=== PATIENT | female | born 1960 | race Caucasian/White ===

== ENCOUNTER 2021-08-14 09:37 | Emergency (ER) | payer OTHER, SELFPAY ==
--- NOTE | ~2021-08-14 | XR_ITS ---
EXAMINATION: XR ANKLE, LEFT CLINICAL INFORMATION: Twisting injury COMPARISON: None TECHNIQUE: AP, lateral, and mortise views of the left ankle. FINDINGS: Marked lateral ankle soft tissue swelling. Mild medial ankle soft tissue swelling. No visible acute fracture or dislocation. Ankle mortise is maintained. Plantar calcaneal spur. Anterior process of the calcaneus, fifth metatarsal base appear intact. . XR/XR ankle LT min 3V IMPRESSION: Ankle soft tissue swelling. No radiographically evident acute fracture or dislocation.
[2021-08-14 09:47] VITALS: BP 134/85; PULSE 103; RESP 22; TEMP 36.6; O2SAT 90; BMI 38.6
[2021-08-14 11:50] VITALS: PULSE 100; RESP 20; O2SAT 91
--- NOTE | 2021-08-14 11:55 | ED_ITS ---
HPI - Extremity Injury (Lower) General Chief Complaint: Extremity Injury, Lower Stated Complaint: lt ankle injury Time Seen by Provider: 08/14/21 11:36 Source: patient and family Mode of arrival: ambulatory Limitations: no limitations History of Present Illness HPI Narrative: 61-year-old female with a past medical history of COPD and postural orthostatic tachycardia syndrome presenting to the ED with complaints of left ankle pain/swelling after she fell asleep on her couch last night and when she got up she must been laying on her left ankle because it was completely asleep and when she tried to get up she did not feel her ankle therefore she fell and landed directly on her ankle and her ankle twisted inward and since then she has been having severe pain/swelling/especially with palpation and movement. She denies head injury or loss of consciousness. She denies being on any blood thinners. She denies any other injuries complaints or concerns at this time. MD complaint: ankle injury and fall Onset (ago): day(s) (Since last night) Injury: Left: ankle Type of Injury: inversion Place: home Severity: severe Severity scale (1-10): >10 Relieving factors: nothing Exacerbating factors: weight bearing, movement and palpation Context: fall Associated symptoms: swelling Other symptoms: none Treatments prior to arrival: cold therapy Related Data Previous Rx's Medication Instructions Recorded acetaminophen 500 mg tablet 1,000 mg PO QID PRN #14 tab 08/14/21 (Tylenol Extra Strength) ibuprofen 800 mg tablet 800 mg PO Q8H PRN #14 tab 08/14/21 oxycodone 5 mg tablet 5 mg PO Q6H PRN #14 tab 08/14/21 Allergies Allergy/AdvReac Type Severity Reaction Status Date / Time No Known Allergies Allergy Unverified 06/10/20 14:53 Review of Systems Review of Systems: Constitutional : No Weight loss, No Fever, No Chills, No Night Sweats, No Fatigue, No Malaise ENT/Mouth : No Hearing loss, No Ear Pain, No Nasal Congestion, No Sinus Pain, No Hoarseness, No sore throat, No Rhinorrhea, No Swallowing Difficulty Eyes: No Eye Pain, No Swelling, No Redness, No Foreign Body, No Discharge, No Vision Changes Cardiovascular : No Chest Pain, No SOB, No Dyspnea on Exertion, No Orthopnea, No Edema, No Palpitations Respiratory : No Cough, No Sputum, No Wheezing, No Smoke Exposure, No Dyspnea Gastrointestinal : No Nausea, No Vomiting, No Diarrhea, No Constipation, No abdominal Pain, No Hematochezia, No Melena Genitourinary : no irregular bleeding, No Dysuria, No Urinary Frequency, No Hematuria, No Urinary Incontinence, No Urgency, No Flank Pain, No Urinary Flow Changes, No Hesitancy Musculoskeletal : + joint pain/swelling, No Myalgias Skin : No Skin Lesions, No rash Neuro : No Weakness, No Numbness, No Paresthesias, No Loss of Consciousness, No Dizziness, No Headache Psych : No Anxiety/Panic, No Depression, No SI/HI/AH/VH, No Social Issues, Heme/Lymph: No Bruising, No Bleeding,No Lymphadenopathy Endocrine : No Polyuria, No Polydipsia, No Temperature Intolerance Yes all other systems are reviewed and are negative [facility] Past Medical History Attestation statement: The following information was validated with the patient. Medical History Postural orthostatic tachycardia syndrome Social History Social History Advance Directives: No Physical Exam Vital Signs: Vital Signs: Last Vital Signs Temp 98 F 08/14/21 09:47 Pulse 100 08/14/21 11:50 Resp 20 08/14/21 11:50 BP 134/85 08/14/21 09:47 Pulse Ox 91 L 08/14/21 11:50 Body Mass Index 38.6 vital signs have been reviewed as normal and appeared to be correct. Blood pressure normal Heart rate normal. Respiration rate normal. Temperature normal. Oxygen saturation normal. Appearance: Alert. Oriented X3. No acute distress. Head: Normal external exam. Normocephalic. Atraumatic. Eyes: PERRLA. EOMI. Conjunctiva and sclera normal. Eyelids normal. ENT: Pharynx normal. Uvula midline. Moist mucous membranes. Neck: Normal inspection. Neck supple. FROM. CVS: Normal heart rate and rhythm. Respiratory: No respiratory distress. Painless inspiration. Skin: Skin warm and dry. Normal skin color. Normal skin turgor. No rashes/lesions/lacerations noted. Extremities: Patient with moderate tenderness to palpation and soft tissue swelling to left lateral malleolus. Otherwise no obvious tendon or ligament injury. No signs of infection. Achilles tendon is intact.Otherwise all other Extremities exhibit normal range of motion and nontender. Neuro: Oriented X 3. No motor deficit. No sensory deficit. Reflexes normal. Normal steady gait. No focal neuro deficits noted. Vascular: + radial pulses/+ 2 distal pedal pulses/+2 dorsalis pedis b/l. Normal cap refill. No cyanosis noted to upper extremity nails and lower extremity toes nails. Course Course Course Narrative: 61-year-old female who has a past medical history of COPD presenting to the ED with complaints of left ankle pain/swelling after she fell off of her couch last night no head injury loss of conscious not on any blood thinners. X-rays obtained and negative for any fractures. I explained to the patient that her oxygen was in the low 90s and she reports that she is not have any cough URI symptoms or any shortness of breath that she does have a history of COPD and was a daily smoker years ago therefore due to patient not having complaints most likely this is her baseline. We will place an Yao wrap and provided crutches and treat symptomatically instructions to follow-up with orthopedic in symptoms persist for longer than 2-3 weeks and to return if any new or worsening symptoms to follow up with primary care provider as well. Patient understands agrees with this plan. MDM - Extremity Injury (Lower) Medical Records Attestation: I reviewed the patient's medical records. Imaging Data left ankle xray: Attestation: I personally reviewed and interpreted this imaging study as follows: Radiologist's impression: FINDINGS: Marked lateral ankle soft tissue swelling. Mild medial ankle soft tissue swelling. No visible acute fracture or dislocation. Ankle mortise is maintained. Plantar calcaneal spur. Anterior process of the calcaneus, fifth metatarsal base appear intact. .? XR/XR ankle LT min 3V IMPRESSION: Ankle soft tissue swelling. No radiographically evident acute fracture or dislocation. Procedures Orthopedic Splinting/Casting Injury #1: Side: left Lower Extremity Injury Location: ankle Lower Extremity Immobilizer: Yao wrap Other Orthopedic Equipment: crutches Discharge Plan Discharge Clinical Impression: Ankle sprain and strain, Fall Patient Disposition: Home, Self-Care Instructions: Ankle Sprain (ED), Crutch Instructions (ED), How to Use an Elastic Bandage (ED), Fall Prevention (ED) Prescriptions: New ibuprofen 800 mg tablet 800 mg PO Q8H PRN (Reason: pain) Qty: 14 RF: 0 acetaminophen [Tylenol Extra Strength] 500 mg tablet 1,000 mg PO QID PRN (Reason: fever or pain) Qty: 14 RF: 0 oxycodone 5 mg tablet 5 mg PO Q6H PRN (Reason: pain) Qty: 14 RF: 0 Referrals: David Piña MD [Physician] - 2 weeks (Make an appointment in 3 weeks if symptoms persist for longer than 2-3 weeks) Otto Hernandez MD [Primary Care Provider] - 2 days Print Language: Bulgarian
[2021-08-14] MEDS: oxyCODONE HCl Immed Release 5 MG TABLET PO (11:57)
[2021-08-14] MEDS: Ibuprofen 800 MG TABLET PO (11:57)
== END 2021-08-14 12:18 | disposition home or self-care (01) ==
PROVIDERS: Emergency Provider Emergency Medicine Emergency Medical Services; PCP Internal Medicine
DX: S93.402A Sprain of unspecified ligament of left ankle, initial encounter (principal); M25.572 Pain in left ankle and joints of left foot; X50.1XXA Overexertion from prolonged static or awkward postures, initial encounter; Y93.9 Activity, unspecified; Y92.009 Unspecified place in unspecified non-institutional (private) residence as the place of occurrence of the external cause; Y99.9 Unspecified external cause status; Z79.899 Other long term (current) drug therapy
CPT/HCPCS: 29515; 73610; 99283; 99284

== ENCOUNTER → 2021-08-25 09:58 | Outpatient (BNVA) | payer OTHER, SELFPAY | PROVIDERS: PCP Internal Medicine; Visit Provider Physician Assistant ==

== ENCOUNTER → 2021-09-13 11:30 | Outpatient (BNVA) | payer OTHER, SELFPAY | PROVIDERS: PCP Internal Medicine; Visit Provider Physician Assistant ==

== ENCOUNTER 2022-04-26 14:56 | Outpatient (REF) | payer OTHER, SELFPAY ==
--- NOTE | ~2022-04-26 | MM_ITS ---
EXAMINATION: MM SCREENING DIGITAL BREAST TOMOSYNTHESIS, BILATERAL CLINICAL INFORMATION: Screening. Asymptomatic. The lifetime risk of breast cancer based on the Tyrer-Cuzick Model is 6%. COMPARISON: Mammography: 07/25/2014, 05/29/2012 TECHNIQUE: Digital breast tomosynthesis is performed in both the craniocaudal and mediolateral oblique views along with computer-aided detection (CAD). Synthesized 2D images are generated from the tomosynthesis. FINDINGS: There are scattered areas of fibroglandular density (ACR BI-RADS breast composition Category b). Parenchymal pattern is similar to prior exam. There is no interval mass or architectural abnormality or abnormal calcifications. No developing density or architectural abnormality. The axilla and skin contours are unremarkable. MM/MM tomosynthesis screening BI IMPRESSION: No mammographic evidence of malignancy. ASSESSMENT: BI-RADS 1: Negative RECOMMENDATION: Routine annual mammography screening. This patient's information was entered into a reminder system with a target due date for their next mammogram.
== END 2022-04-26 14:57 | disposition home or self-care (01) ==
LOC: HO.MAMMO 14:56
PROVIDERS: PCP Internal Medicine; Visit Provider Internal Medicine
DX: Z12.31 Encounter for screening mammogram for malignant neoplasm of breast (principal)
CPT/HCPCS: 77063; 77067

== ENCOUNTER 2022-06-09 15:15 | Outpatient (REF) | payer OTHER, SELFPAY ==
--- NOTE | ~2022-06-09 | CT_ITS ---
EXAMINATION: CT CHEST SCREENING CLINICAL INFORMATION: Current smoker. 43 pack-year history. COMPARISON: None. TECHNIQUE: Multidetector volumetric CT imaging of the chest is performed without contrast using low dose technique. Additional 2D coronal and sagittal reformatted images and axial 3D maximum intensity projection (MIP) images are generated on the CT workstation. This CT examination was performed using dose optimization techniques as appropriate, variously including the following: *Automated exposure control *Adjustment of mA and/or kV according to patient size (this includes techniques or standardized protocols for targeted exams where dose is matched to indication/reason for exam; i.e. extremities or head) *Use of iterative reconstruction technique DLP: 343 mGy-cm FINDINGS: LUNGS: There are small calcified pulmonary nodules in the central right upper lobe measuring 3 mm axial image 13 and 5 mm axial image 2:15 series 5. There is a 2 mm calcified right lower lobe nodule axial image 214 series 5. There is a 2 mm calcified right upper lobe nodule axial image 218 series 5. There is a 2 mm calcified right middle lobe nodule axial image 299 series 5. There is a 2 mm calcified right lower lobe nodule axial image 3 and 306 series 5. There is scarring or subsegmental atelectasis at the lung bases greatest in the lingula and left lower lobe. No evidence of emphysema interstitial lung disease or bronchiectasis. No endobronchial or endotracheal lesion. MEDIASTINUM: The mediastinum is normal. CORONARY ARTERY CALCIFICATION: Mild coronary artery and aortic valve calcification. PLEURA: There is no pleural effusion. No pleural mass or thickening. AXILLA: No lymphadenopathy. UPPER ABDOMEN: There is prominence of the left lobe and caudate lobe of the liver. There is a recannulized paraumbilical vein and upper abdominal wall hernia containing fat and varices. OSSEOUS STRUCTURES: Degenerative changes of the spine. CT/CT lung screening IMPRESSION: Small calcified pulmonary nodules probably representing old granulomatous disease. Mild coronary artery and aortic valve calcification. Suggestion of portal hypertension. ASSESSMENT: Lung-RADS category 2: Benign RECOMMENDATION: Annual low-dose chest CT follow-up recommended.
== END 2022-06-09 15:16 | disposition home or self-care (01) ==
LOC: HO.CT 15:15
PROVIDERS: Visit Provider Physician Assistant Medical
DX: Z12.2 Encounter for screening for malignant neoplasm of respiratory organs (principal); Z87.891 Personal history of nicotine dependence
CPT/HCPCS: 71271; G0296

== ENCOUNTER 2022-06-23 16:58 | Emergency (ER) | payer OTHER, SELFPAY ==
--- NOTE | ~2022-06-23 | XR_ITS ---
EXAMINATION: XR HIP, RIGHT , AP pelvis CLINICAL INFORMATION: Pain COMPARISON: None available at the time of this dictation. TECHNIQUE: Frontal and lateral views of the hip acquired. , AP pelvis FINDINGS: There is 2 cm round radiolucency projecting over the right iliac bone, although could be bowel gas, cannot rule out osteolytic bone lesion. There is no evidence of acute fracture or dislocation. There are mild degenerative arthritic changes of the hip evident by sclerotic changes of the acetabular roof and narrowing of the joint space. Mild degenerative changes of the symphysis pubis. Mild degenerative changes of the SI joints. Adjacent pubic rami are intact. Surrounding soft tissues are unremarkable. XR/XR hip RT w PEL1V IMPRESSION: 2 cm radiolucency projecting over the right iliac bone, could be bowel gas versus osteolytic bone lesion. Would recommend correlation with follow-up pelvic right and left oblique views. .
--- NOTE | ~2022-06-23 | CT_ITS ---
EXAMINATION: CT ABDOMEN AND PELVIS WITHOUT CONTRAST CLINICAL INFORMATION: Possible pelvic osteolytic lesion. COMPARISON: Radiographs of the pelvis and right hip from 06/23/2022. Chest CT from 06/09/2022. TECHNIQUE: Multidetector volumetric imaging was performed from the superior aspect of the liver through the pubic symphysis. Sagittal and coronal reformatted images were obtained on the technologist's workstation. This CT examination was performed using dose optimization techniques as appropriate, variously including the following: *Automated exposure control *Adjustment of mA and/or kV according to patient size (this includes techniques or standardized protocols for targeted exams where dose is matched to indication/reason for exam; i.e. extremities or head) *Use of iterative reconstruction technique DLP: 901 mGy-cm FINDINGS: LUNG BASES: Mild atelectasis in visualized lung bases. No pulmonary consolidation or pleural effusion. LIVER: Cirrhotic liver morphology with nodular surface contour. Liver parenchyma is diffusely hypodense, consistent with presence of steatosis. Again noted is a recanalized paraumbilical vein. No focal liver lesions are identified on this noncontrast examination. GALLBLADDER AND BILIARY TREE: Gallbladder is without radiopaque stones, wall thickening or pericholecystic fluid. No dilated bile ducts. PANCREAS: Normal. No edema, pancreatic ductal dilatation or mass. SPLEEN: Normal. ADRENAL GLANDS: Normal. KIDNEYS AND URETERS: The kidneys have normal size and cortical thickness. No perinephric edema or fluid collection. No urolithiasis or hydroureteronephrosis. BLADDER: Normal. No calculi or wall thickening. BOWEL AND PERITONEUM: Stomach is unremarkable. No dilated loops of bowel. The appendix is normal. No overt bowel wall thickening or mesenteric fat stranding. Diverticula of the colon without evidence of diverticulitis. No wall thickening at the site of distal sigmoid anastomosis. No free fluid or pneumoperitoneum. ABDOMINAL WALL: Unremarkable. VASCULATURE: Atherosclerotic calcification of the abdominal aorta and iliac arteries without aneurysm. LYMPH NODES: No pathologic sized lymph nodes in the abdomen or pelvis. No inguinal lymphadenopathy. PELVIC VISCERA: Uterus and adnexa are unremarkable. No pelvic free fluid. SKELETAL: Chronic L5 spondylolysis, degenerative disc disease and mild grade 1 anterolisthesis at L5-S1. The degenerated, bulging disc is encroaching upon the bilateral neural foramina at L5-S1. No lytic lesion in the pelvis. CT/CT abdomen pelvis wo IV con IMPRESSION: * Cirrhotic liver, hepatic steatosis and recanalized paraumbilical vein. * No acute imaging abnormalities in the abdomen or pelvis. * Diverticula of the colon without diverticulitis. * No evidence of lytic bone lesion in the pelvis.
[2022-06-23 17:04] VITALS: BP 144/90; PULSE 100; RESP 18; TEMP 37.2; O2SAT 97; BMI 39.9
--- NOTE | 2022-06-23 18:18 | ED_ITS ---
HPI - General Adult General Chief complaint: Extremity Problem Stated complaint: hip pain Time Seen by Provider: 06/23/22 18:14 History of Present Illness HPI narrative: Patient complains of right hip right gluteal and right low back pain that sometimes radiates to the posterior thigh for several weeks getting worse She is able to ambulate and move her legs, she denies any muscle weakness, denies any numbness or loss of sensation, has no other joint pains Pain is worse with standing for long time or certain movements, no recent injury Related Data Previous Rx's Medication Instructions Recorded [email or web address],knee,reg,xlrg #12 ea 04/17/22 Allergies Allergy/AdvReac Type Severity Reaction Status Date / Time No Known Allergies Allergy Verified 06/23/22 16:15 Review of Systems Review of Systems: No fever no chills no dizziness no headache no neck pain no chest pain no shortness of breath no abdominal pain no nausea or vomiting no changes to bowel or bladder no dysuria no incontinence no frequency no skin rash no other joint pains no numbness or weakness Yes all other systems are reviewed and are negative [facility] Past Medical History Medical History (Updated 06/24/22 @ 00:01 by [facility] Steven) Diverticulosis History of COVID-19 (~2020) History of diverticulitis Personal history of nicotine dependence Postural orthostatic tachycardia syndrome Tubular adenoma of colon (~2012) Surgical History History of colon resection History of colonoscopy History of foot surgery History of melanoma excision History of tubal ligation Family History Family History Son Colon cancer, Onset Age: 39 Other Adopted Social History Social History Housing: Apartment Alcohol intake: current Patient Tobacco Use Status: Former Tobacco user Quit Date: 03/25/2013 Tobacco use type: Cigarette Years Smoked: (onset 18, 1ppd x 34yrs, 34pyh, quit 03/25/2013) e-Cigarette/Vaping Use: Never Used Advance Directives: No Advance Directives Information Provided: No Current occupational status: retired Current occupation: rt handed Cognitive needs: No Hearing needs: No Vision needs: Yes Physical Exam ED Vital Signs: Vital Signs - 24 hr 06/23/22 17:04 Temperature 98.9 F Pulse Rate 100 Respiratory Rate 18 Blood Pressure 144/90 H Pulse Oximetry 97 Oxygen Delivery Method Room Air BMI result Body Mass Index 39.9 General appearance no acute distress Head is normocephalic atraumatic Neck is supple, Respiratory no distress Chest clear to auscultation bilateral Abdomen soft nontender Extremities full range of motion x4 including the right leg, there was no focal tenderness over hip or groin The back there was tenderness to the right lateral gluteal and lower back area, skin was normal with no redness or evidence of absces, no soft tissue mass in the gluteal or low back area Extremities full range of motion x4 Skin no rash Neuro no focal motor sensory deficits, gait and balance were normal, interaction both expression comprehension were normal Course Course Course Narrative: X-ray of the right hip showed a 2 cm lucency over the right iliac bone that could have been gas versus any osteolytic bone lesion A CT was ordered for further evaluation of this finding At 19:00 the case is signed out to physician assistant jordan to follow CT results and dispo patient I called the patient the following day when I saw the CT report and she was already aware of the stye hepatics steatosis and cirrhotic liver morphology and will follow with her doctor to discuss any further evaluation for that Discharge Plan Discharge Clinical Impression: Back pain Patient Disposition: Home, Self-Care Instructions: Back Pain (ED) Additional Instructions: There were no emergent or critical findings on the CT scan Follow with primary doctor as scheduled July 11 Return to the ER any time for any change or worse condition, incontinence, severe uncontrolled worsening pain, fever, any worse condition or concerns Prescriptions: No Action (DME) [email or web address],knee,reg,xlrg Misc See Rx Instructions .Route Qty: 12 0RF Rx Instructions: As directed 20-30 mm HG Interventions: ED Discharge Assessment Last Done: 06/23/22 22:47 Discharge Date/Time: 06/23/22 22:50
[2022-06-23 19:36] VITALS: BP 118/70; PULSE 95; O2SAT 94
== END 2022-06-23 22:50 | disposition home or self-care (01) ==
PROVIDERS: Emergency Provider Emergency Medicine; PCP Internal Medicine
DX: M54.50 Low back pain, unspecified (principal); M25.551 Pain in right hip; F17.210 Nicotine dependence, cigarettes, uncomplicated; Z71.6 Tobacco abuse counseling
CPT/HCPCS: 73502; 74176; 99283; 99284

== ENCOUNTER 2022-07-06 12:55 | Outpatient (REF) | payer OTHER, SELFPAY ==
[2022-07-11 11:42] LABS: HPV mRNA E6/E7 rflx Not Detected (Not Detected)
== END 2022-07-06 12:56 | disposition home or self-care (01) ==
LOC: HO.LNP 12:55
PROVIDERS: Visit Provider Obstetrics & Gynecology
DX: Z01.419 Encounter for gynecological examination (general) (routine) without abnormal findings (principal); Z11.51 Encounter for screening for human papillomavirus (HPV)
CPT/HCPCS: 87624; 88142

== ENCOUNTER 2022-08-19 07:29 | Outpatient (REF) | payer OTHER, SELFPAY ==
[2022-08-19 07:40] LABS: MANUAL DIFF FLAG NO
[2022-08-19 08:26] LABS: Basophils Absolute Auto 0.1 X10*3/uL (0.0-0.2); Basophils Percent Auto 0.9 % (0-2); Eosinophils Absolute Auto 0.4 X10*3/uL (0.0-0.4); Eosinophils Percent Auto 4.8 % (0-4); Hematocrit 52.1 % (37.0-47.0); Hemoglobin 16.8 g/dl (12.0-16.0); Imm Gran Abs Auto 0.02 X10*3/uL (0.00-0.03); Imm Gran Pct Auto 0.3 % (0.0-0.4); Lymphocytes Absolute Auto 2.1 X10*3/uL (1.2-4.9); Lymphocytes Percent Auto 28.3 % (20-40); Mean Corpuscular HGB Conc 32.2 g/dl (31.0-35.0); Mean Corpuscular Hemoglobin 31.1 pg (27.0-33.0); Mean Corpuscular Volume 96.5 fL (80.0-98.0); Mean Platelet Volume 11.4 fL (9.4-12.3); Monocytes Absolute Auto 0.8 X10*3/uL (0.1-1.2); Monocytes Percent Auto 11.1 % (2-11); Neutrophils Absolute Auto 4.1 x10*3/uL (2.0-8.3); Neutrophils Percent Auto 54.6 % (45-73); Platelet Count 167 X10*3/uL (160-400); White Blood Count 7.5 X10*3/uL (4.8-10.8)
[2022-08-19 09:20] LABS: Alanine Aminotransferase 39 U/L (0-31); Albumin Level 3.7 g/dL (3.5-5.0); Alkaline Phosphatase 86 U/L (39-117); Anion Gap 14 (12-20); Aspartate Amino Transferase 41 U/L (5-31); Bilirubin Total 0.8 mg/dL (0.0-1.0); Blood Urea Nitrogen 11 mg/dL (9-16); Calcium 9.5 mg/dL (8.4-10.2); Carbon Dioxide 25 mmol/L (22-29); Chloride 103 mmol/L (96-108); Cholesterol 175 mg/dL; Estimated Glomerular Filt Rate > 60; Free T4 (Free Thyroxine) 0.91 ng/dL (0.71-1.85); Glucose Random 94 mg/dL (60-115); HDL Cholesterol 35 mg/dL; LDL Cholesterol Calculated 119 mg/dl; Sodium 138 mmol/L (135-145); Thyroid Stimulating Hormone 1.29 uIU/mL (0.32-4.0); Total Protein 7.8 g/dL (6.5-8.0); Triglycerides 108 mg/dL; Vitamin D 25-OH Total 15.5 ng/mL (>30)
[2022-08-19 09:38] LABS: Vitamin B12 563 pg/mL (200-900)
== END 2022-08-19 07:30 | disposition home or self-care (01) ==
LOC: HO.LAB 07:29
PROVIDERS: PCP Internal Medicine; Visit Provider Internal Medicine
DX: E78.00 Pure hypercholesterolemia, unspecified (principal); E66.9 Obesity, unspecified
CPT/HCPCS: 36415; 80053; 80061; 82306; 82607; 82746; 84439; 84443; 85025

== ENCOUNTER 2022-10-30 13:34 | Outpatient (RCR) | payer OTHER, SELFPAY ==
--- NOTE | 2022-10-30 14:57 | MHC.PT.EP ---
[facility] [place] [facility] [place] [facility] [place] [facility] [address] [phone] F: [phone] F: [phone] F: [phone] F: [phone] Physical Therapy Plan of Care Date of Evaluation: Date of Surgery: NA Diagnosis: Pain in R hip Assessment: Shelley is a 62 year old female who is referred to PT for pain in R hip . She reports of having pain in R buttock with radiates down to R LE. She has had this pain for about a year. She denies any trauma or falls. On PT examination she presented with TTP over R sacral border, R glute, R piriformis, 6/10 pain with standing and walking for more than 15 minutes and sitting for more than an hour, decreased trunk ROM, decreased muscle strength, altered posture and gait. She lives with her boyfriend who assist her with ADLS that requires bending, lifting and carrying. She works in [employer]- [employer]. She would benefit from skilled PT to address the aforementioned impairments and improve tolerance to functional activities. Frequency and Duration: The patient will be seen 2/week for 5 weeks Short Term Goals: 1. Pt will have 50% decrease in pain which will enable her to tolerate sitting without pain in 2 weeks. 2. Pt will be able to move her trunk through all planes of motion without pain which will enable her to dress her lower body in 3 weeks. Residential Goals: 1. Pt will present with increase in muscle strength by 1 grade which will enable her to tolerate walking and standing for about an hour in 4 weeks. 2. Pt will be independent with [facility] for symptom management and maintenance following d/c in 5 weeks. Treatment Plan: Modalities to reduce pain, spasms and effusion. Manual therapy to restore motion and function. Therapeutic exercise to improve strength and flexibility. Neuromuscular re-education for posture and balance. Therapeutic activities to return to functional activities of daily living. Electronically signed by: Davida Meneses PT DPT Please sign and return to therapist. Thank you for your referral.
--- NOTE | 2022-11-08 13:27 | MHC.PT.DC ---
[facility] [place] Office [place] [facility] [place] Office [address] [phone] F: [phone] F: [phone] F: [phone] F: [phone] Physical Therapy Discharge Report Diagnosis: Pain in R hip Date of Surgery: NA Date of Evaluation: 10/30/22 Date of Discharge: 11/08/22 Treatments to Date: 1 Cancellations to Date: 0 No Shows to Date: Discharge Status: Patient Elected to Stop Discharge Summary: Shelley called and d/c herself from PT due to insurance issues (high deductibles) Electronically signed by: Davida Meneses PT DPT Please sign and return to therapist. Thank you for your referral.
== END 2022-11-08 13:27 | disposition home or self-care (01) ==
LOC: HO.PT 13:34
PROVIDERS: PCP Internal Medicine; Visit Provider Nurse Practitioner Family
DX: M25.551 Pain in right hip (principal)
CPT/HCPCS: 97110; 97161

== ENCOUNTER 2024-03-20 07:43 | Outpatient (AMB) | payer OTHER, SELFPAY ==
[2024-03-20 07:50] VITALS: BP 104/68; PULSE 92; O2SAT 96; BMI 42.9
--- NOTE | 2024-03-20 07:50 | MHC.PC.OV ---
Vital Signs 03/20/24 07:50 Height 5 ft 4 in Weight 250 lb 0.1 oz BMI 42.9 BP 104/68 Blood Pressure Location Lt brachial Position Sitting Pulse 92 Pulse Source Pulse Oximeter Pulse Oximetry (%) 96 Oxygen Delivery Method Room Air Intake Visit Reasons: Preop eye surgery 04/16 and 04/30 Intake Note: Patient is here for a Pre-op for Cataract surgery scheduled with [facility] Scarlet Wong ; 04/16/24 and 04/30/24. Allergies No Known Allergies Allergy (Verified 03/20/24 08:01) Medication List - Last Reconciled 03/20/24 by Cynthia Phelps PA-C cholecalciferol (vitamin D3) 50 mcg PO DAILY [email or web address] As directed 20-30 mm HG Tobacco use date assessed: 03/20/24 Dental Screening Dental Screen Date: 03/20/24 Did you have a dental visit in the last 12 months?: Yes Did you have a dental problem in the last 6 months where you did not have access to dental care?: No Was dental information given to patient?: Patient has dentist HPI Preop eye surgery 04/16 and 04/30 HPI Details 63 year old obese female with history of COPD, GERD, and cirrhosis last seen August 2023 for physical exam coming in today for cataract surgery pre-op 04/16 and 04/30. Patient has been seeing PT for her hip pain. Patient is going for surgery for cataract surgery and is having bilateral eyes done because she is at risk for additional fluid buildup and increased pressures. Her breathing has been under good control since smoking cessation and has not had any shortness of breath outside of exercise which resolves with rest. Denies any chest pain at rest or during exercise. [facility] Medical History Diverticulosis Tubular adenoma of colon (~2012) Personal history of nicotine dependence History of diverticulitis History of COVID-19 (~2020) Postural orthostatic tachycardia syndrome Surgical History History of melanoma excision History of tubal ligation History of colonoscopy History of foot surgery History of colon resection Family History Son Colon cancer, Onset Age: 39 Other Adopted Social History Housing: Apartment Alcohol intake: former Patient Tobacco Use Status: Former Tobacco user Tobacco use type: Cigarette Years Smoked: (onset 18, 1ppd x 34yrs, 34pyh, quit 03/25/2013) e-Cigarette/Vaping Use: Never Used Current occupational status: employed Current occupation: Customer Service Admin, rt handed Cognitive needs: No Hearing needs: No Vision needs: Yes Female Reproductive History Menstrual Age of Menarche: 14 Questionnaire PHQ-9 Over the last 2 weeks, how often have you been bothered by any of the following problems? 1. Little interest or pleasure in doing things: not at all 2. Feeling down, depressed, or hopeless: not at all 3. Trouble falling or staying asleep, or sleeping too much: not at all 4. Feeling tired or having little energy: not at all 5. Poor appetite or overeating: not at all 6. Feeling bad about yourself - or that you are a failure or have let yourself or your family down: not at all 7. Trouble concentrating on things, such as reading the newspaper or watching television: not at all 8. Moving or speaking so slowly that other people could have noticed. Or the opposite - being so fidgety or restless that you have been moving around a lot more than usual: not at all 9. Thoughts that you would be better off or of hurting yourself in some way: not at all Total score: 0 Depression Screening Interpretation: Negative Depression Screening Done: Yes Source: Developed by Drs. Matt Lizarraga, Macy Shelton, Bang Jett and colleagues, with an educational bharati from [employer]. Thrive Questionnaire Date Thrive assessed: 03/20/24 I am a: Patient What is your living situation today?: I have a steady place to live Within the past 12 months, did the food you bought not last and you didn't have the money to get more?: Never true Within the past 12 months, did you worry whether your food would run out before you got money to buy more?: Never true Do you have trouble paying for medicines?: No Do you have trouble getting transportation to medical appointments?: No Do you have trouble paying your heating and electricity bill?: No Do you have trouble taking care of your child, family member or friend?: No Do you have trouble with day-to-day activities such as bathing, preparing meals, shopping, managing finances, etc.?: No Are you currently unemployed and looking for a job?: No Are you interested in more education?: No Please select the resources that you would like help with: None Currently or been in a relationship where the following occur: No concerns reported THRIVE Score: 0 AUDIT C Alcohol Use Questionnaire (AUDIT-C) 1. How often do you have a drink containing alcohol?: Monthly or less 2. How many drinks containing alcohol do you have on a typical day when you are drinking?: 1 or 2 3. How often do you have six or more drinks on one occasion?: Never Total Score: 1 Score Reviewed/Action Taken: No KERRY-7 AMB Questionnaire KERRY-7 Date KERRY - 7 assessed: 07/11/22 Source: Developed by Drs. Matt Lizarraga, Macy Shelton, Bang Jett and colleagues, with an educational bharati from [employer]. Review of Systems Const Denies anorexia, Denies fatigue, Denies fever(s), Denies headache(s), Denies night sweats and Denies stops breathing during sleep Eyes Reports no additional complaints and Denies loss of vision ENT Reports no additional complaints, Denies dysphagia, Denies dizziness and Denies headache(s) Card Denies chest pain, Denies chest pain at rest, Denies diaphoresis, Denies syncope, Denies edema, Denies leg edema, Denies palpitations and Denies dyspnea Resp Denies cough and Denies dyspnea GI Denies abdominal pain, Denies melena, Denies bloating, Denies change in bowel habits, Denies constipation, Denies dysphagia, Denies diarrhea and Denies vomiting Reports no additional complaints Musc Reports no additional complaints, Denies numbness and Denies tingling Skin/Breast Reports system reviewed and no additional complaints, except as documented Neuro Denies confusion, Denies dizziness, Denies syncope, Denies headache(s), Denies lack of coordination, Denies loss of vision, Denies numbness and Denies tingling Psych Reports no additional complaints and Denies confusion Endo Denies fatigue and Denies palpitations Perez/Lymph Reports no additional complaints Aller/Immun Reports no additional complaints Physical exam (Primary Care) Vital Signs: Oxygen Delivery Method Room Air 03/20/24 07:50 BMI result Body Mass Index 42.9 Tobacco/Smoking Status: Tobacco use Status Tobacco use date assessed 07/11/22 08/24/22 15:13 Patient Tobacco Use Status Former Tobacco user 08/24/22 15:38 Tobacco use type Cigarette 08/24/22 15:38 e-Cigarette/Vaping Use Never Used 08/24/22 15:38 Depression Screening Interpretation: Negative Thrive Assessment: Date of Thrive Assessment Date Thrive assessed 07/11/22 08/24/22 15:13 Currently or been in a relationship where the following occur: No concerns reported Const General: cooperative, healthy appearing and no acute distress; No confusion Nutritional Appearance: obese Orientation/consciousness: patient oriented x3 and No confusion Limitations: no limitations HENMT Head: Yes normal to inspection Ears: hearing grossly normal bilaterally, external ears normal and TM's normal bilaterally General nose exam: Normal external nose present Face and sinus: Yes normal facial exam Mouth: Normal oral and palatal mucosa present and oropharynx normal Throat: Yes posterior oropharynx normal Eyes General: appearance normal, both eyes and all related structures Pupils: Equal, round and reactive pupils present Neck Neck: Yes normal visual inspection, Yes full ROM and Yes no lymphadenopathy Resp Effort & Inspection: normal respiratory effort Auscultation: clear to auscultation bilaterally, no crackles, no rales, no rhonchi and no wheezes Cardio Rate: regular rate Rhythm: regular rhythm Heart sounds: S1 normal heart sound present and S2 normal heart sound present GI Inspection: Yes normal to inspection Neuro General: patient oriented x3, gait normal, moves all extremities and No confusion Cranial nerves: Yes Equal, round and reactive pupils present Gait exam (Neuro): Normal gait present Psych Mental Status: mental status grossly normal Speech and movement: Normal speech and movement present Affect: normal affect Attitude: cooperative Thought process: Normal thought process present Thought content: Normal thought content present Insight: Good insight present (Psych) Judgement: Good judgement present (Psych) Assessment and Plan Assessment & Plan (1) COPD (chronic obstructive pulmonary disease): Code(s): J44.9 - Chronic obstructive pulmonary disease, unspecified Qualifiers: COPD type: unspecified COPD Qualified Code(s): J44.9 - Chronic obstructive pulmonary disease, unspecified Plan: Patient is not currently on any inhalers and denies shortness of breath or chest tightness that does not resolve spontaneously. Endorses mild shortness of breath with exercise which resolves with rest. Symptoms have improved greatly with smoking cessation and she denies the need for further intervention at this time. (2) Pre-op evaluation: Code(s): Z01.818 - Encounter for other preprocedural examination Plan: This surgery is considered low risk due to lack of anesthesia. Blood work is not indicated at this time and chronic conditions appear to be under control. She is considered low risk for cardiac complications for this procedure. (3) Cirrhosis of liver: Code(s): K74.60 - Unspecified cirrhosis of liver Qualifiers: Hepatic cirrhosis type: unspecified hepatic cirrhosis Ascites presence: without ascites Qualified Code(s): K74.60 - Unspecified cirrhosis of liver Plan: Liver enzymes mildly elevated in the last blood work. Will continue to follow at routine annual exam with further evaluation. Patient has stopped drinking alcohol and Tylenol is used rarely with the understanding it can cause further damage to the liver. Plan Thank you for letting me participate in the care of this patient. I personally spent 30 minutes reviewing, examining and documenting on this patient. Coding Level of Care Code Est Pt Level 3 (75700) Diagnoses Chronic obstructive pulmonary disease, unspecified COPD type J44.9 COPD type: unspecified COPD Pre-op evaluation Z01.818 Cirrhosis of liver without ascites, unspecified hepatic cirrhosis type K74.60 Hepatic cirrhosis type: unspecified hepatic cirrhosis Ascites presence: without ascites Additional Codes PHQ-9 - 23592 - PHQ-9 Billing: ([id number])
== END 2024-03-20 08:26 | disposition home or self-care (01) ==
LOC: HO.HMGH 07:43
PROVIDERS: PCP Internal Medicine
DX: J44.9 Chronic obstructive pulmonary disease, unspecified (principal); K74.60 Unspecified cirrhosis of liver; Z01.818 Encounter for other preprocedural examination
CPT/HCPCS: 99213